=== PATIENT | female | born 1965 | race Caucasian/White ===

== ENCOUNTER 2025-04-12 18:40 | Emergency (ER) | payer BC, SELFPAY ==
[2025-04-12 19:06] VITALS: BP 180/79; PULSE 79; RESP 18; TEMP 36.9; O2SAT 96; BMI 32.3
--- NOTE | 2025-04-12 19:12 | XR_ITS ---
Examination: CT abdomen and pelvis without contrast. Coronal 3-D reconstructions. Sagittal 2-D reconstructions. Date and time of exam: April 12, 2025, 2008 hours INDICATIONS: Right flank pain beginning today, history kidney stones COMPARISON: 01/14/2024 CTDI: vol (mGy): 9.59 DLP: (mGycm): 517 Technique: Axial images of the abdomen have been obtained, 3 mm slice thickness Intravenous contrast material has not been administered. Low dose protocols were performed. One or more of the following dose reduction techniques were used; automated exposure control, adjustment of the mA and/or KV according to patient size, use of iterative reconstruction technique. Findings: No focal liver or splenic lesions No adrenal mass No pancreatic mass or peripancreatic edema No definite gallstones Moderate renal parenchymal scar formation Bilateral renal calculi, the largest 8 mm right kidney Mild right hydronephrosis Normal appendix Colonic diverticulosis Contracted urinary bladder No pelvic mass Moderate osteopenia IMPRESSION: Moderate bilateral renal parenchymal scar formation Bilateral renal calculi, the largest right kidney 8 mm Mild right hydronephrosis, no ureteral calculi, consider right urinary tract infection No bladder mass or bladder calculi
--- NOTE | 2025-04-12 19:20 | PD.EDFMALE ---
ED Female Urogenital RME/HPI General Chief complaint: Urogenital-Female Stated complaint: RIGHT FLANK PAIN X 1 HR Time Seen by Provider: 04/12/25 18:58 Arrival date/time: 04/12/25 18:40 59F with history of HTN and asthma presents to ED with 2 hours of R flank pain and N/V. Patient took some oxy from last time she had kidney stone (2023), which helped a lot. Limitations: no limitations Related Data Home Medications ?Medication ?Instructions ?Recorded ?Confirmed ondansetron HCl 4 mg tablet 4 mg PO Q8HR PRN Nausea And 01/14/24 01/14/24 Vomiting oxycodone 5 mg tablet 5 mg PO PRN PRN Pain 01/14/24 01/14/24 tamsulosin 0.4 mg capsule 4 mg PO DAILY 01/14/24 01/14/24 Previous Rx's ?Medication ?Instructions ?Recorded oxycodone-acetaminophen 5 mg-325 1 tab PO Q8H PRN pain #10 tabs 01/14/24 mg tablet cefuroxime axetil 500 mg tablet 500 mg PO BID 7 days #14 tabs 04/12/25 ondansetron 4 mg disintegrating 4 mg PO Q8H PRN nausea and 04/12/25 tablet vomiting #14 tabs Allergies Allergy/AdvReac Type Severity Reaction Status Date / Time NKA* Allergy Uncoded 04/12/25 18:43 Review of Systems Review of Systems Systems Reviewed: All systems reviewed, normal except as documented Genitourinary Genitourinary: Reports as per HPI and Reports flank pain Past Medical History Past Medical History CARDIAC: Positive Hypertension; Negative Congestive Heart Failure RESPIRATORY: Positive Asthma; Negative Chronic Obstructive Pulmonary Disease (COPD) GASTROINTESTINAL: Positive Diverticulitis GENITOURINARY: Positive Kidney Stones; Negative Renal Disease ENDOCRINE: Negative Diabetes Mellitus Type 1 or Diabetes Mellitus Type 2 Social History SMOKING STATUS: Former smoker ED Exam General Limitations: Present no limitations General appearance: Present alert and in no apparent distress Head Head exam: Present atraumatic Neck Neck exam: Present normal inspection, full ROM and trachea midline Chest Chest inspection: Present normal inspection and symmetric chest wall rise Back Exam Back exam: Present normal inspection and full ROM Neurological Exam Neurological exam: Present alert and oriented X3 Psychiatric Psychiatric exam: Present normal affect and normal mood Skin Skin exam: Present warm, dry, intact and normal color Course Quality Measures none Orders Category Date Time Status CT abdomen pelvis wo con Stat Exams 04/12/25 19:12 Completed CBC Stat Lab 04/12/25 20:08 Completed CMP [Comprehensive Metabolic Panel] Stat Lab 04/12/25 20:08 Completed Drug Screen,Urine Stat Lab 04/12/25 19:31 Completed Urinalysis, C/S if Indicated Stat Lab 04/12/25 19:31 Completed Urine Culture Stat Lab 04/12/25 19:31 Received Ondansetron Odt [Zofran Odt] Med 04/12/25 19:12 Discontinued 4 mg PO X1 ONE cefTRIAXone [Rocephin] 1,000 mg Med 04/12/25 21:24 Discontinued Lidocaine 1% Pf Vial 5ml [Xylocaine 1% Pf 5 ml] 2.1 ml IM X1 Vital Signs Vital signs: Vital Signs Temperature 98.5 F 04/12/25 19:06 Pulse Rate 79 04/12/25 19:06 Respiratory Rate 18 04/12/25 19:06 Blood Pressure 180/79 H 04/12/25 19:06 Pulse Oximetry (%) 96 04/12/25 19:06 Oxygen Delivery Method Room Air 04/12/25 19:06 O2 at 96% on RA and WNLs Urogenital - Female MDM Narrative MDM Narrative:: 59F with history of HTN and asthma presents to ED with 2 hours of R flank pain and N/V. Patient took some oxy from last time she had kidney stone (2023), which helped a lot. Physical exam reveals no gross CVA tenderness. Patient is afebrile, calm, and alert. CT no ureteral stone, but some hydro, likely from pyelo vs recently passed stone. Moderate leukocytosis. CMP unremarkable. UA mostly blood, but also some bacteria. Meds and funeral pre arrangement counselor given. Patient data External records reviewed:: [facility] previous records Clinical information provided by:: patient Social determinants that could affect healthcare access:: none Patient has the following chronic illnesses:: HTN and asthma How is presenting disease/condition affected by chronic disease/condition?: exacerbated by Evaluation data The following diagnostics were reviewed and interpreted by me:: lab results and radiology exam(s) Lab and/or radiology exams considered but not ordered:: ordered Interpretation Summary: above Medications / Prescriptions Medications or Prescriptions considered but not ordered:: ordered Medication administrations:: Medication Administration History Discontinued Medications Ceftriaxone Sodium 1,000 mg/ (Lidocaine HCl 2.1 ml) 0 mg IM X1 ONE Stop: 04/12/25 21:25 Ondansetron HCl (Ondansetron Odt 4 Mg Tabrap) 4 mg PO X1 ONE; Protocol Stop: 04/12/25 19:13 Last Admin: 04/12/25 20:48 Dose: 4 mg Documented By: EB above Consultations Consultation(s) initiated? (list below): No Diagnosis Urogenital Female Differential Diagnosis: urinary tract infection, bacterial vaginosis, trichomoniasis, cervicitis, ovarian cyst, vaginitis, ruptured ovarian cyst, cyst of Bartholin's gland, cystitis, dysmenorrhea and other (kidney stone, CKD, ISA) Most likely diagnosis given after review of the tests above:: UTI Admission Indicated Admission indicated?: not indicated Admission Request Was there a request for admission?: No Disposition Plan Disposition Plan: Discharge Discharge Attestation Discharge Attestation: The patient and all family members were given an opportunity to ask questions and understood the discharge instructions. Discharge instructions specifically effects, indications for sooner follow up or return to the emergency department, and the expected course of current diagnosis. Patient condition: Stable Discharge Plan Plan Patient Disposition: HOME (Self Care) Discharge Disposition comment: Stable Prescriptions/Referrals Prescriptions/Med Rec: New cefuroxime axetil 500 mg tablet 500 mg PO BID 7 Days Qty: 14 0RF ondansetron 4 mg tablet,disintegrating 4 mg PO Q8H PRN (Reason: nausea and vomiting) Qty: 14 0RF No Action ondansetron HCl 4 mg tablet 4 mg PO Q8HR PRN (Reason: Nausea And Vomiting) tamsulosin 0.4 mg capsule 4 mg PO DAILY oxycodone 5 mg tablet 5 mg PO PRN PRN (Reason: Pain) oxycodone-acetaminophen 5-325 mg tablet 1 tab PO Q8H MDD 3 tabs/day PRN (Reason: pain) Qty: 10 0RF Referrals: No Primary/Family,Physician [Primary Care Provider] - In 1 week Problem List Clinical Impression: Urinary tract infection Patient/Caregiver Discharge Instructions Education Materials: ED CYSTITIS Female Adult Additional Instructions: Please follow-up with PCP within 24-48 hours and return immediately if symptoms worsen. NSAIDs like ibuprofen tend to work better for this type of pain. Print Language: Indonesian Stand Alone Forms: Patient Portal Info Letter PA/UNDER BASTER Supervising Physician PA/UNDER BASTER Supervising Physician: Dr. Bradford
[2025-04-12 19:51] LABS: Collection Type, Urine Clean Catch
[2025-04-12 19:58] LABS: Bacteria,Urine Rare; Bilirubin,Urine Negative (Negative); Blood,Urine 3+ (Negative); Calcium Oxalate Crystals,Urine 1+; Clarity,Urine Turbid (Clear/Hazy); Color,Urine Yellow (Lt Yel-Yel); Glucose, Urine Negative (Negative); Ketones,Urine Negative (Negative); Leukocyte Esterase,Urine Positive (Negative); Nitrite,Urine Negative (Negative); PH,Urine 6.5 (5.0-7.0); Protein,Urine Trace (Neg - Trace); RBC,Urine 324 /hpf (0-3); Specific Gravity,Urine 1.026 (1.001-1.035); Squamous Epithelial Cell,Urine 6 /hpf (0-5); Urobilinogen,Urine Negative mg/dL (0.0-1.0); WBC,Urine 39 /hpf (0-5)
[2025-04-12 20:01] LABS: Culture Indicated,Urine Yes
[2025-04-12 20:06] LABS: Amphetamine/Methamp Scrn,U Negative (Negative); Barbiturate Screen,Urine Negative (Negative); Benzodiazepines Screen,Urine Negative (Negative); Benzoylecgonine Screen, Ur Negative (Negative); Fentanyl Screen,Urine Negative (Negative); Opiate Screen,Urine Positive (Negative); THC Screen,Urine Negative (Negative)
[2025-04-12 20:29] LABS: Basophils # (Auto) 0.1 Thou/mm3 (0.0-0.2); Basophils % (Auto) 1 % (0-2.5); Eosinophils # (Auto) 0.1 Thou/mm3 (0.0-0.5); Eosinophils % (Auto) 1 % (0-10); Hematocrit 41.2 % (36.0-46.0); Hemoglobin 14.0 g/dL (12.0-16.0); Immature Granulocytes Auto 0.06 Thou/mm3 (0.00-0.00); Lymphocytes # (Auto) 1.4 Thou/mm3 (1.0-4.8); Lymphocytes % (Auto) 9 % (10-50); Mean Corpuscular HGB Conc 34.0 g/dl (31.0-37.0); Mean Corpuscular Hemoglobin 29.2 pg (25.0-35.0); Mean Corpuscular Volume 86 fL (80-100); Monocytes # (Auto) 1.0 Thou/mm3 (0.0-0.8); Monocytes % (Auto) 7 % (0-12); Neutrophils # (Auto) 12.9 Thou/mm3 (1.8-7.7); Neutrophils % (Auto) 83 % (37-80); Nucleated Red Blood Cell # 0.00 Thou/mm3 (0.00-0.00); Nucleated Red Blood Cell % 0 /100 WBC (0); Platelet Count 287 Thou/mm3 (140-440); RDW Standard Deviation 41.7 fL (36.4-46.3); Red Blood Count 4.79 Miln/mm3 (4.00-5.20); White Blood Count 15.5 Thou/mm3 (3.6-11.0)
[2025-04-12] MEDS: ONDANSETRON ODT 4 MG TABRAP PO (20:48)
[2025-04-12 20:54] LABS: Alanine Aminotransferase 13 U/L (10-49); Albumin, Serum 4.3 gm/dL (3.4-4.8); Albumin/Globulin Ratio 1.5 (1.2-2.2); Alkaline Phosphatase 117 U/L (46-116); Anion Gap 9 (7-16); Aspartate Amino Transferase < 8 U/L (0-34); BUN/Creatinine Ratio 14 Ratio (12-20); Bilirubin,Total 0.2 mg/dL (0.3-1.2); Blood Urea Nitrogen 11 mg/dL (9-23); Calcium 9.7 mg/dL (8.3-10.6); Calcium (Corrected) 9.7 mg/dL (8.5-10.1); Carbon Dioxide 26.4 mMol/L (20.0-31.0); Chloride 109 mMol/L (98-107); Creatinine (Component) 0.8 mg/dL (0.6-1.3); Estimated Creatinine Clearance 83.8 mL/min (>60); Globulin 2.8 gm/dL (2.3-3.5); Glucose 120 mg/dL (74-106); Osmolality,Calculated 287 (275-295); Potassium 3.7 mMol/L (3.4-5.1); Sodium 144 mMol/L (136-145); Total Protein 7.1 gm/dL (5.7-8.2); eGFR > 60 See Note
== END 2025-04-12 22:19 | disposition home or self-care (01) ==
PROVIDERS: Physician Assistant; Emergency Provider Emergency Medicine
DX: N39.0 Urinary tract infection, site not specified (principal); I10 Essential (primary) hypertension; J45.909 Unspecified asthma, uncomplicated; Z87.442 Personal history of urinary calculi
CPT/HCPCS: 36415; 74176; 80053; 80307; 81001; 85025; 87077; 87086; 87186; 96372; 99283; J0696; J3490; Q0162